=== PATIENT | female | born 1980 | race Two or more races ===

== ENCOUNTER → 2017-07-28 | Outpatient (CLI) | payer MEDICAID ==
[2017-07-28 15:26] LABS: HEMOGLOBIN 13.6 g/dL (12.2-16.2); LYMPH # 2.2 K/mm3 (0.7-4.5); LYMPH % 39.8 % (10-50.0)
[2017-07-28 16:38] LABS: BUN 16 mg/dL (7-18)
[2017-07-28 16:40] LABS: GFR (ESTIMATED) 80 ML/MIN (59-)
[2017-07-30 08:47] LABS: RA Latex Turbid. 34.8 IU/mL (0.0-13.9)
[2017-07-30 16:36] LABS: Antinuclear Antibodies, IFA Negative (.)
== END ==
LOC: LAB 14:38
PROVIDERS: Emergency Medicine
DX: R53.83 Other fatigue (principal)